=== PATIENT | female | born 1960 | race Caucasian/White ===

== ENCOUNTER 2016-09-27 16:50 | Emergency (ER) | payer OTHER ==
--- NOTE | 2016-09-27 18:46 | DIAGNOSTIC IMAGING REPORT ---
PROCEDURE: XR CHEST 1 VIEW INDICATION: SHORTNESS OF BREATH TECHNIQUE: Portable AP view 06:11 p.m. COMPARISON: None. FINDINGS: Endotracheal tube is in good position. Endotracheal tube is in the distended stomach. Lungs are clear. Heart and mediastinum are normal. Thorax is normal. IMPRESSION: 1. Endotracheal tube in good position. Lungs clear.
--- NOTE | 2016-09-27 19:28 | ED ORDER SUMMARY ---
..... Patient: SANDEEP RODRIGUEZ OrderSheet [facility] VisitID: [id number] [address] [place] [address] 56y, F Registration Date/Time: 09/27/2016 ORDER SHEET Weight: 73 kg (measured) Allergies: No Known Drug Allergy GENERAL ORDERS: CBC w Diff Urgent (17:03 09/27/2016 Joaquin Mijares) (17:37 Rena R.N.) CMP Urgent (17:03 09/27/2016 Joaquin Mijares) (17:37 Rena R.N.) UA-Culture if indicated Urgent (17:03 09/27/2016 Joaquin Mijares) (17:37 Rena R.N.) Urine Drug Screen Urgent (17:03 09/27/2016 Joaquin Mijares) (17:37 Rena R.N.) ABG (G) Urgent (17:03 09/27/2016 Joaquin Mijares) (17:37 Rena R.N.) Acetaminophen Level Urgent (17:03 09/27/2016 Joaquin Mijares) (17:37 Rena R.N.) Salicylate Level Urgent (17:03 09/27/2016 Joaquin Mijares) (17:37 Rena R.N.) Chest 1V (Post intubation) Urgent (18:03 09/27/2016 Joaquin Mijares) (Ack 18:04 LNations ER Tech1) (18:28 Rena R.N.) ABG (G) Urgent (18:37 09/27/2016 Joaquin Mijares) (Ack 18:43 LNations ER Tech1) (22:13 Ellie R.N.) MEDICATION ORDERS: Charcoal Activated PO 50 gm (NOW) (17:03 09/27/2016 Joaquin Mijares) (17:36 Rena R.N.) Rocuronium IVP 0.1 mg/kg (NOW) (19:06 09/27/2016 Rena R.N. verbal order read back to Joaquin Mijares) (19:09 Rena R.N.) IV FLUIDS: IV NS : initial bolus none -, then 1000 mL/hr for X1 (NOW) (17:00 09/27/2016 Joaquin Mijares) (17:31 Rena MartínezN.) Sodium Bicarbonate IV 100 meq (NOW) (17:09/27/2016 Joaquin Mijares) (17:34 Rena MartínezN.) Propofol Drip IV : initial bolus 50 mg, then 0.05 mg/kg/min (TITRATE); Urgent (18:27 09/27/2016 Rena Garcia verbal order read back to Joaquin Mijares) (18:59 Rena Nicholson.N.) Succinylcholine IV 100 mg (NOW) (19:07 09/27/2016 Rena Garcia verbal order read back to Joaquin Mijares) (19:11 Rena Shaw.) Etomidate IV 20 mg (NOW) (19:08 09/27/2016 Rena Garcia verbal order read back to Joaquin Mijares) (19:10 Rena MartínezN.) Sodium Bicarbonate IV 50 meq (NOW) (20:00 09/27/2016 Ellie Garcia verbal order read back to Joaquin Mijares) (20:02 Ellie Shaw.) ORDER SHEET NOTES: [Electronically signed by Musa Freedman Dr. (22:22 09/27/2016)] [Electronically signed by Saeed Zuñiga R.N. (22:24 09/27/2016)] [Electronically locked/signed by Saeed Zuñiga R.N. (22:24 09/27/2016)]
--- NOTE | 2016-09-27 19:28 | ED ORDER SUMMARY ---
..... Patient: SANDEEP RODRIGUEZ OrderSheet [facility] VisitID: [id number] [address] [place] [address] 56y, F Registration Date/Time: 09/27/2016 ORDER SHEET Weight: 73 kg (measured) Allergies: No Known Drug Allergy GENERAL ORDERS: CBC w Diff Urgent (17:03 09/27/2016 Joaquin Mijares) (17:37 Rena R.N.) CMP Urgent (17:03 09/27/2016 Joaquin Mijares) (17:37 Rena R.N.) UA-Culture if indicated Urgent (17:03 09/27/2016 Joaquin Mijares) (17:37 Rena R.N.) Urine Drug Screen Urgent (17:03 09/27/2016 Joaquin Mijares) (17:37 Rena R.N.) ABG (G) Urgent (17:03 09/27/2016 Joaquin Mijares) (17:37 Rena R.N.) Acetaminophen Level Urgent (17:03 09/27/2016 Joaquin Mijares) (17:37 Rena R.N.) Salicylate Level Urgent (17:03 09/27/2016 Joaquin Mijares) (17:37 Rena R.N.) Chest 1V (Post intubation) Urgent (18:03 09/27/2016 Joaquin Mijares) (Ack 18:04 LNations ER Tech1) (18:28 Rena R.N.) ABG (G) Urgent (18:37 09/27/2016 Joaquin Mijares) (Ack 18:43 LNations ER Tech1) (22:13 Ellie R.N.) MEDICATION ORDERS: Charcoal Activated PO 50 gm (NOW) (17:03 09/27/2016 Joaquin Mijares) (17:36 Rena R.N.) Rocuronium IVP 0.1 mg/kg (NOW) (19:06 09/27/2016 Rena R.N. verbal order read back to Joaquin Mijares) (19:09 Rena R.N.) IV FLUIDS: IV NS : initial bolus none -, then 1000 mL/hr for X1 (NOW) (17:00 09/27/2016 Joaquin Mijares) (17:31 Rena MartínezN.) Sodium Bicarbonate IV 100 meq (NOW) (17:09/27/2016 Joaquin Mijares) (17:34 Rena MartínezN.) Propofol Drip IV : initial bolus 50 mg, then 0.05 mg/kg/min (TITRATE); Urgent (18:27 09/27/2016 Rena Garcia verbal order read back to Joaquin Mijares) (18:59 Rena Nicholson.N.) Succinylcholine IV 100 mg (NOW) (19:07 09/27/2016 Rena Garcia verbal order read back to Joaquin Mijares) (19:11 Rena Shaw.) Etomidate IV 20 mg (NOW) (19:08 09/27/2016 Rena Garcia verbal order read back to Joaquin Mijares) (19:10 Rena MartínezN.) Sodium Bicarbonate IV 50 meq (NOW) (20:00 09/27/2016 Ellie Garcia verbal order read back to Joaquin Mijares) (20:02 Ellie Shaw.) ORDER SHEET NOTES: [Electronically signed by Musa Freedman Dr. (22:22 09/27/2016)] [Electronically signed by Saeed Zuñiga R.N. (22:24 09/27/2016)] [Electronically locked/signed by Saeed Zuñiga R.N. (22:24 09/27/2016)]
--- NOTE | 2016-09-27 19:28 | ED NURSING NOTES ---
Clinical Report - Nurses [facility] [address] [place] [address] 09/27/2016 16:50 Patient: SANDEEP RODRIGUEZ TRIAGE 17:00 09/27/16. BP: 95/68. HR: 127. RR: 18. O2 saturation: 91% on room air. Pain level now: 0/10. --18:46 Allen Cummins R.N. 17:00 09/27/16. Temp: 97.4 F (axillary). --19:21 Allen Cummins R.N. late entry -16:50. --19:32 Allen Cummins R.N. Triage time 1650. Acuity: LEVEL 2. 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 late entry -1700. SEPSIS SCREEN: Sepsis Screen. Negative (no infection suspected/documented). MARCELLUS COMA SCORE: [place] Coma Scale: 11- eyes open spontaneously (4); best verbal response- incoherent speech (2); best motor response- localizes to pain (5). --18:46 Allen Cummins R.N. Weight: 73 kg measured. Height/Length: 66 inches Estimated. BMI: 26. --16:59 Allen Cummins R.N. Medications OLANZapine Oral. --18:33 Allen Cummins R.N. HydrOXYzine HCl Oral. --18:33 Allen Cummins R.N. Ultram Oral. --18:33 Allen Cummins R.N. TiZANidine HCl Oral. --18:33 Allen Cummins R.N. CloNIDine HCl Oral. --18:34 Allen Cummins R.N. Atorvastatin Calcium Oral. --18:34 Allen Cummins R.N. AmLODIPine Besylate Oral. --18:34 Allen Cummins R.N. HCTZ. --18:35 Allen Cummins R.N. Naproxen Oral. --18:35 Allen Cummins R.N. Gabapentin Oral. --18:35 Allen Cummins R.N. QUEtiapine Fumarate Oral. --18:36 Allen Cummins R.N. Nortriptyline HCl Oral. --18:36 Allen Cummins R.N. Citalopram Hydrobromide Oral. --18:37 Allen Cummins R.N. Allergies No Known Drug Allergy. --18:42 Allen Cummins R.N. History Arrived by EMS, and ([facility]). ( Fire and Police on scene). The patient has had suicidal thoughts. SELF HARM ASSESSMENT: A self harm assessment was performed. (Unable to assess. Pt is here for a suicide attempt.). --18:46 Allen Cummins R.N. ( Pt took Nortryptyline 125mg x 30 pills (3750mg)). --19:32 Allen Cummins R.N. PROBLEMS: Breast Cancer. Cervical spine fracture. Endometriosis. --18:42 Allen Cummins R.N. Chronic pain. Depression. --18:43 Allen Cummins R.N. ADDITIONAL SURGERIES: Hysterectomy. Laminectomy. Lumpectomy of breast. --18:42 Allen Cummins R.N. Interventions ID band on patient. To treatment room. --18:46 Allen Cummins R.N. PHYSICAL ASSESSMENT late entry -17:00. To room via stretcher. GENERAL / NEURO / PSYCH: Gag reflex present. The patient is disoriented to place, time and situation. Altered mental status: confused and stuporous. Patient has incoherent responses. RESPIRATORY: Respirations not labored. Rhonchi bilaterally. CVS: Cardiac rhythm: sinus tachycardia. Capillary refill less than 2 seconds. GI / : Abdomen soft. Bowel sounds within normal limits. SKIN: Skin is pale. Skin is warm and dry. --19:16 Allen Cummins R.N. NURSING PROGRESS NOTES 16:50 09/27/2016 Site #1 started prior to arrival by EMS via IV in the left antecubital space with an 20g angiocath; one attempt. Saline lock flushed with 10 mL saline. --17:31 Allen Cummins R.N. 16:50 09/27/2016 Started bag #1 1000 mL IV Fluids IV NS (Saline); bolus of 1000 mL over 30 minute(s) via site #1. Allergies verified and confirmed 5 rights. IV patency established. IV site checked: no pain, redness, or swelling. IV flushed thoroughly pre- and post-medication administration. --17:31 Allen Cummins R.N. 17:10 09/27/2016 Site #2 started via IV in the right wrist with an 18g angiocath, with aseptic technique and good blood return; one attempt. Saline lock flushed with 10 mL saline. --17:31 Allen Cummins R.N. 17:10 09/27/2016 Started bag #1 1000 mL IV Fluids IV NS (Saline); bolus of 400 mL over 15 minute(s) via site #2. Allergies verified and confirmed 5 rights. IV patency established. IV site checked: no pain, redness, or swelling. IV flushed thoroughly pre- and post-medication administration. --17:33 Allen Cummins R.N. 17:12 09/27/2016 Sodium Bicarbonate IVP 100 meq given over 10 minute(s) via site #2. Allergies verified and confirmed 5 rights. IV patency established. IV site checked: no pain, redness, or swelling. IV flushed thoroughly pre- and post-medication administration. IVP given by RN. --17:34 Allen Cummins R.N. 17:09/27/2016 CHARCOAL ACTIVATED (Activated Charcoal) PO Oral Suspension 50 gm given. Allergies verified and confirmed 5 rights. --17:37 Allen Cummins R.N. 17:09/27/2016 IV Fluids IV NS Discontinued: bag #1 completed. Total amount infused: 1000 mL. IV patency established. IV site checked: no pain, redness, or swelling. IV flushed thoroughly. --17:32 Allen Cummins R.N. 17:25 09/27/2016 IV Fluids IV NS via IV site #2 Rate Changed: bag #2 decreased to 75 mL/hr. IV patency established. IV site checked: no pain, redness, or swelling. IV flushed thoroughly. --17:33 Allen Cummins R.N. 17:30 09/27/2016 Sodium Bicarbonate IVP Response: no adverse reaction symptoms have improved. --19:12 Allen Cummins R.N. 17:57 09/27/2016 Started bag #1 1000 mL IV Fluids IV NS (Saline); bolus of 100 mL over 5 minute(s) then at 50 mL/hr over 4 hour(s) via site #1. Allergies verified and confirmed 5 rights. IV patency established. IV site checked: no pain, redness, or swelling. IV flushed thoroughly pre- and post-medication administration (Liter #3). --18:30 Allen Cummins R.N. late entry -17:15. 16 fr NG tube inserted in right nostril with no difficulty. Placement confirmed by auscultation and return of gastric contents. Return: yellow fluid. Attached to low and intermittent suction. Patient tolerated procedure well. --19:02 Allen Cummins R.N. late entry -17:43. EKG time: (1743). EKG was performed by a tech and shown to the ED physician. --19:01 Allen Cummins R.N. late entry -18:20. INTUBATION: Intubation performed by ED physician. Assisted by two nurses, one tech and respiratory therapist. Preparation: pulse oximeter, logistics vice president and NIBP monitor applied, oxygen administration, BVM, suction and intubation tray at bedside, IV established and pre-oxygenated; see medication / fluid casino manager for meds used in this procedure. Procedure: 7.0 fr cuffed ETT via oral route. Proper airway placement confirmed by equal breath sounds, equal rise and fall of chest, epigastric auscultation, rising O2 sats, CO2 detector. Post-procedure: she was stable, no complications, tube secured (22 cm at lip) and connected to ventilator. CXR interpreted per physician revealed good tube position. Estimated blood loss: 0 mL. Total time of assist / procedure: 15 minutes. --19:05 Allen Cummins R.N. 17:57 09/27/2016 Rocuronium IVP 0.1 mg/kg given over 2 minute(s) via site #2. Allergies verified and confirmed 5 rights. IV patency established. IV site checked: no pain, redness, or swelling. IV flushed thoroughly pre- and post-medication administration. IVP given by RN. --19:09 Allen Cummins R.N. 17:58 09/27/2016 Etomidate IVP 20 mg given over 2 minute(s) via site #2. Allergies verified and confirmed 5 rights. IV patency established. IV site checked: no pain, redness, or swelling. IV flushed thoroughly pre- and post-medication administration. IVP given by RN. --19:10 Allen Cummins R.N. 18:00 09/27/2016 Succinylcholine IVP 100 mg given over 1 minute(s) via site #2. Allergies verified and confirmed 5 rights. IV patency established. IV site checked: no pain, redness, or swelling. IV flushed thoroughly pre- and post-medication administration. IVP given by RN. --19:11 Allen Cummins R.N. 18:00 09/27/2016 CHARCOAL ACTIVATED PO Response: no adverse reaction symptoms have improved. --19:12 Allen Cummins R.N. 18:10 09/27/2016 Rocuronium IVP Response: no adverse reaction. --19:13 Allen Cummins R.N. 18:10 09/27/2016 Etomidate IVP Response: no adverse reaction. --19:13 Allen Cummins R.N. 18:10 09/27/2016 Succinylcholine IVP Response: no adverse reaction. --19:13 Allen Cummins R.N. 18:50 09/27/2016 Started 0.05 mg of Propofol Drip IV in bag #1 100 mL; at 10 mcg/kg/min over 4 hour(s) via site #2 via IV pump. Allergies verified and confirmed 5 rights. IV patency established. IV site checked: no pain, redness, or swelling. IV flushed thoroughly pre- and post-medication administration. --18:59 Allen Cummins R.N. 19:14 09/27/2016 Propofol Drip IV Response: no adverse reaction. --19:14 Allen Cummins R.N. late entry -17:10. Oxygen administered. parachute line tier, pulse oximeter and NIBP monitor placed on patient; logistics vice president- Lead II and V5; monitor alarms on. Patient gowned. Head of bed elevated. Suicide precautions initiated. Continuous one on one supervision. Two patient identifiers checked. Side rails up x 2. Bed placed in lowest position. Brakes of bed on. Patient ready for evaluation- chart flagged. --19:15 Allen Cummins R.N. 17:15 09/27/16. BP: 127/75. HR: 117. RR: 17. O2 saturation: 95% on nasal cannula at 2 liters/minute. Pain level now: 0/10. --19:19 Allen Cummins R.N. <<STRICKEN ENTRY-- 17:30 09/27/16. BP: 127/75. HR: 117. RR: 17. O2 saturation: 95% on nasal cannula at 2 liters/minute. Pain level now: 0/10. --19:19 Allen Cummins R.N. --END STRIKE>> Correction. --19:20 Allen Cummins R.N. 17:30 09/27/16. BP: 134/79. HR: 118. RR: 18. O2 saturation: 96% on nasal cannula at 2 liters/minute. Pain level now: 0/10. --19:27 Allen Cummins R.N. 17:45 09/27/16. BP: 118/71. HR: 113. RR: 15. O2 saturation: 97% on nasal cannula at 2 liters/minute. --19:27 Allen Cummins R.N. 18:00 09/27/16. BP: 81/59. HR: 108. RR: 15. O2 saturation: 100% on ventilator. Pain level now: 0/10. --19:28 Allen Cummins R.N. 18:15 09/27/16. BP: 92/67. HR: 109. RR: 14. O2 saturation: 98% on ventilator. End tidal CO2: 27 mmHg. Pain level now: 0/10. --19:29 Allen Cummins R.N. 18:30 09/27/16. BP: 104/72. HR: 105. RR: 14. O2 saturation: 98% on ventilator. End tidal CO2: 27 mmHg. Pain level now: 0/10. --19:30 Allen Cummins R.N. late entry -19:20. Care transferred and report given (Saeed Martínez RN). --19:34 Allen Cummins R.N. 19:34 09/27/16. BP: 99/67. HR: 96 (regular). RR: 16. O2 saturation: 98% on ventilator. Pain level now: 0/10. Additional comments: Ventilator. --19:35 Saeed Zuñiga R.N. EKG time: (19:53). EKG was performed by a tech and shown to the ED physician. --19:54 Alphonse Rhodes 19:59 09/27/2016 IV Fluids IV NS Bag Change: bag #3. Total amount infused: 1000. STARTED bag #4 (1000 mL) at 150 mL/hr via IV pump. Confirmed 5 rights. IV patency established. IV site checked: no pain, redness, or swelling. IV flushed thoroughly. --20:09 Saeed Zuñiga R.N. 20:02 09/27/2016 Sodium Bicarbonate IVP 50 meq given over 5 minute(s) via site #1. Allergies verified and confirmed 5 rights. IV patency established. IV site checked: no pain, redness, or swelling. IV flushed thoroughly pre- and post-medication administration. IVP given by RN. --20:02 Saeed Zuñiga R.N. 20:15 09/27/16. BP: 125/79. HR: 98. RR: 16. O2 saturation: 99%. Pain level now: 0/10. --20:22 Saeed Zuñiga R.N. 20:30 09/27/16. BP: 126/78. HR: 98. RR: 27. O2 saturation: 99% on room air. Pain level now: 0/10. --22:12 Saeed Zuñiga R.N. 21:20 09/27/2016 Site #[address] upon transfer; patent, no pain and no signs of infection or infiltration. Good blood return present; flushes easily. --22:19 Saeed Zuñiga R.N. 21:20 09/27/2016 Site #[address] upon discharge; patent, no pain and no signs of infection or infiltration. Good blood return present; flushes easily. --22:24 Saeed Zuñiga R.N. 21:20 09/27/2016 IV Fluids IV NS Continued: upon discharge at the rate of 150 mL/hr. 600 mL remaining bag #4. IV patency established. IV site checked: no pain, redness, or swelling. IV flushed thoroughly. --22:15 Saeed Zuñiga R.N. 21:20 09/27/2016 IV Fluids IV NS Continued: at the rate of 21 mL/hr. 800 mL remaining bag #2. IV patency established. IV site checked: no pain, redness, or swelling. IV flushed thoroughly. --22:17 Saeed Zuñiga R.N. DISPOSITION / DISCHARGE 21:00 09/27/16. BP: 124/80. HR: 98. RR: 28. O2 saturation: 99% on room air. Temp: 98.1 F (oral). Pain level now: 0/10. --22:06 Saeed Zuñiga R.N. Departure time: 2100. --22:07 Saeed Zuñiga R.N. 21:30. Transferred. Transported via ambulance by nurse and transport team with monitor, IV and ventilator. Report was given to a nurse via a phone call. Report included patient's condition. Report was acknowledged and care was transferred. Patient's personal items; items were placed in belongings bag and transported with the patient. --22:08 Saeed Zuñiga R.N. Locked/Released at 09/27/2016 22:24 by Saeed Zuñiga R.N.
--- NOTE | 2016-09-27 19:28 | ED CLINICAL REPORT ---
Clinical Report - Physicians/Mid Levels [facility] [address] [place] [address] 09/27/2016 16:50 Patient: SANDEEP RODRIGUEZ Time Seen: 16:57; initial patient contact. Arrived- By ambulance. Historian- EMS personnel. History limited by altered mental status. Physical Exam limited by altered mental status. CPT: ER phys charges level 5 (#430124) (Should be a level 5, ROS was unobtainable to due mental status). HISTORY OF PRESENT ILLNESS Chief Complaint: DRUG OVERDOSE and SUICIDE ATTEMPT. This occurred just prior to arrival. Toxic symptoms present in ED with drowsiness. Single drug taken- Psychiatric medicine- Nortriptyline 3750 mg. The symptoms are described as severe. The patient has been depressed. Recent medical care: Not recently seen/assessed. REVIEW OF SYSTEMS Unobtainable due to patient's unresponsiveness. PAST HISTORY ( chronic pain depression HTN HLD Bipolar D/O). Surgeries: Back surgery. Breast biopsy. Neck surgery. Fusion. SOCIAL HISTORY Smoker - current status unknown. ADDITIONAL NOTES The nursing notes have been reviewed with agreement regarding the chief complaint, PMH and patient medications and allergies. PHYSICAL EXAM Appearance: The patient is lethargic. ENT: No depression of the gag reflex. No trouble handling secretions. Neck: Normal inspection. Neck supple. CVS: Tachycardia. Heart sounds normal. Rhythm normal. Respiratory: No respiratory distress. Breath sounds normal. Abdomen: Soft and nontender. No organomegaly. The bowel sounds are not abnormal. Skin: Skin warm and dry. Normal skin color. No rash. Extremities: No calf tenderness. No lower extremity edema. Neuro: [place] Coma Scale: 8- eyes open to voice (3); best verbal response- none (1); best motor response- withdrawal (4). LABS, X-RAYS, AND EKG EKG: EKG time: (1657). Wide-complex tachycardia (ventricular rate 140). Sinus tachycardia. Normal P waves. Normal MONA. RBBB. Normal ST and T waves. Prolonged QTc (528). The study has been interpreted contemporaneously by me. The study has been independently viewed by me. The EKG appears to be a good tracing. I agree with and confirm the computer reading of the EKG. Interpretation time: 1656. EKG #2: EKG time: (1742). Wide-complex tachycardia (ventricular rate 118). Sinus tachycardia. First-degree atrioventricular block. RBBB. Normal ST and T waves. Prolonged QTc (479). The study has been interpreted contemporaneously by me. The study has been independently viewed by me. The EKG appears to be a good tracing. Interpretation time: 1742. EKG #3: EKG time: (1952). Normal sinus rhythm. Rate: 98. Normal P waves. Normal MONA. RBBB. Normal ST and T waves. Prolonged QTc (566). The study has been interpreted contemporaneously by me. The study has been independently viewed by me. The EKG appears to be a good tracing. Interpretation time: 1952. Laboratory Tests: UA-Culture if indicated: (JEREMIAS: 09/27/2016 17:25) ( [facility] [place] Final results Test Result Flag Units (Reference) URINE COLOR YELLOW URINE APPEARANCE CLEAR URINE GLUCOSE NEGATIVE (NEGATIVE) URINE BILIRUBIN NEGATIVE (NEGATIVE) URINE KETONE NEGATIVE (NEGATIVE) URINE SPECIFIC GRAVITY 1.010 (1.010-1.030) URINE PH 7.5 (5.0-8.0) URINE PROTEIN NEGATIVE (NEGATIVE) URINE UROBILINOGEN 0.2 EU/dL (0.2-1.0) URINE NITRITE NEGATIVE (NEGATIVE) URINE BLOOD NEGATIVE (NEGATIVE) URINE LEUK ESTERASE NEGATIVE (NEGATIVE) URINE RBC 0-1 rbc/hpf (0-1) URINE WBC 1-3 wbc/hpf (0-1) URINE EPITHELIAL CELLS 1-3 EPI/hpf (0-5) URINE BACTERIA FEW (1+) (NONE SEEN) URINE COMMENT CULT NOT INDICATED AMORPHOUS CRYSTALS 1+URINE CULTURES ARE SET-UP BASED ON THE FOLLOWING CRITERIA:POSITIVE NITRITEPOSITIVE LEUKOCYTE ESTERASEGREATER THAN 10 WHITE BLOOD CELLSMODERATE (2+) OR GREATER BACTERIA CBC w Diff: (JEREMIAS: 09/27/2016 17:10) ( MsgRcvd 09/27/2016 17:23) Final results Test Result Flag Units (Reference) WHITE BLOOD COUNT 8.6 K/uL (4.5-11.5) RED BLOOD COUNT 4.84 M/uL (4.00-5.20) HEMOGLOBIN 11.6 L gm/dL (12.0-16.0) HEMATOCRIT 37.0 % (36.0-46.0) MEAN CELL VOLUME 76 L fL (80-100) MEAN CORPUSCULAR HGB 24 L pg (26-34) MEAN CORPUSCULAR HGB CONC 31 g/dL (31-37) RED CELL DISTRIBUTION WIDTH 18.8 H % (11.6-14.8) PLATELET COUNT 286 K/uL (150-400) NEUTROPHIL % 76.3 H % (50-75) LYMPH % 16.7 L % (25-40) MONO % 6.4 % (3-14) EOSINOPHIL % 0.3 % (0-4) BASOPHIL % 0.3 % (0-2) Urine Drug Screen: (JEREMIAS: 09/27/2016 17:25) ( MsgRcvd 09/27/2016 18:01) Final results Test Result Flag Units (Reference) AMPHETAMINE/METHAMPHETAMINE NEGATIVE (NEGATIVE) BARBITURATE NEGATIVE (NEGATIVE) BENZODIAZEPINE NEGATIVE (NEGATIVE) CANNABINOID POSITIVE H (NEGATIVE) COCAINE NEGATIVE (NEGATIVE) ECSTASY NEGATIVE (NEGATIVE) METHADONE NEGATIVE (NEGATIVE) OPIATE POSITIVE H (NEGATIVE) The urine drug screen is a qualitative screening test fordrug overdose and abuse. All screen results should beconsidered as presumptive.Drugs screened for are as follows:BenzodiazepinesCocaineAmphetamines/MetamphetaminesTHC (Tetrahydrocannabinol)OpiatesBarbituratesEcstasyMethadonePositive results are unconfirmed. For confirmation, notifythe lab for the specimen to be sent to the reference lab.All confirmations must be performed by a differentmethodology.The ingestion of natural herbal and plant productscontaining Ephedra/Ephedra metabolites can produce in urineone or more substances capable of cross reacting withamphetamine/methamphetamine immunoassays. These testsprovide a preliminary result only. A more specificalternative chemical method must be used to obtain aconfirmed analytical result. Salicylate Level: (JEREMIAS: 09/27/2016 17:10) ( MsgRcvd 09/27/2016 17:31) Final results Test Result Flag Units (Reference) SALICYLATE 3.9 mg/dL (2.8-20) CMP: (JEREMIAS: 09/27/2016 17:10) ( MsgRcvd 09/27/2016 18:02) Final results Test Result Flag Units (Reference) GLUCOSE 129 H mg/dL (70-110) BUN 9 mg/dL (7-18) CREATININE 0.6 mg/dL (0.6-1.3) Estimated GFR >60 mL/min Estimated GFR- >60 mL/min Note: Persistent reduction over 3 months in eGFR<60 mL/min/1.73 m2 defines CKD. Patients with eGFR values>=60 mL/min/1.73 m2 may also have CKD if evidence ofpersistent proteinuria. Additional information may be foundat www.kidney.org. SODIUM 137 mmol/L (136-145) POTASSIUM 3.0 L mmol/L (3.5-5.1) CHLORIDE 101 mmol/L (98-107) CARBON DIOXIDE 28 mmol/L (21-32) CALCIUM 8.7 mg/dL (8.5-10.1) TOTAL PROTEIN 7.7 g/dL (6.4-8.2) ALBUMIN 3.0 L g/dL (3.3-5.0) BILIRUBIN, TOTAL 0.3 mg/dL (0.0-1.0) ALKALINE PHOSPHATASE 61 U/L (46-116) AST (SGOT) 19 U/L (15-37) ALT (SGPT) 16 U/L (12-78) ACETAMINOPHEN 2.0 L ug/mL (10-30) ABG: (JEREMIAS: 09/27/2016 18:37) ( VtgRcvd 09/27/2016 18:56) Final results Test Result Flag Units (Reference) FIO2 35 % (20-101) ABG MODE OF DELIVERY AC MODIFIED NATHANAEL TEST POSITIVE? YES ABG VENT MODE AC ABG TIDAL VOLUME 450 cc ABG PATIENT RESP RATE 14 /MIN ABG RESP RATE SETTINGS 14 /MIN ARTERIAL BLOOD GAS PEEP 5 cmH2O ARTERIAL BLOOD GAS SITE LR ARTERIAL BLOOD GAS pH 7.47 H (7.35-7.45) ABG PCO2 41.4 mmHg (35-45) ABG PO2 86.3 mmHg (80.0-100.0) ABG BASE EXCESS 5.6 H mmol/L (-6.0--6.0) ABG HCO3 29.8 H mmol/L (20.0-26.0) ABG TCO2 31.1 H mmol/L (24.0-30.0) ABG NvTlF4x 118.5 H mmHg (7.0-14.0) *NOTE: Normal rangeis based on aFIO2 of 21% ABG SAT O2 97.6 % (95.1-100.0) ABG TOTAL HEMOGLOBIN 10.4 L g/dL (12.0-16.0) ABG O2 HEMOGLOBIN 96.0 % (95.0-100.0) ABG CARBOXYHEMOGLOBIN 1.7 H % (0.5-1.5) ABG METHEMOGLOBIN -0.1 L % (0.4-1.5) ABG RHEMOGLOBIN 2.4 % ABG: (JEREMIAS: 09/27/2016 17:03) ( MsgRcvd 09/27/2016 17:15) Final results Test Result Flag Units (Reference) FIO2 21 % (20-101) ABG MODE OF DELIVERY RA MODIFIED NATHANAEL TEST POSITIVE? YES ARTERIAL BLOOD GAS SITE LR ARTERIAL BLOOD GAS pH 7.42 (7.35-7.45) ABG PCO2 41.2 mmHg (35-45) ABG PO2 63.4 L mmHg (80.0-100.0) ABG BASE EXCESS 1.7 H mmol/L (-6.0--6.0) ABG HCO3 26.4 H mmol/L (20.0-26.0) ABG TCO2 27.7 mmol/L (24.0-30.0) ABG JgUsT4d 40.3 H mmHg (7.0-14.0) *NOTE: Normal rangeis based on aFIO2 of 21% ABG SAT O2 91.8 L % (95.1-100.0) ABG TOTAL HEMOGLOBIN 10.7 L g/dL (12.0-16.0) ABG O2 HEMOGLOBIN 90.2 L % (95.0-100.0) ABG CARBOXYHEMOGLOBIN 1.7 H % (0.5-1.5) ABG METHEMOGLOBIN 0.0 L % (0.4-1.5) ABG RHEMOGLOBIN 8.1 % . PROGRESS AND PROCEDURES Intubation: Time: 1800. Per protocol, time-out completed immediately before the procedure. ED physician at bedside. Intubated with 7.0 cuffed endotracheal tube. Head placed in sniffing position. C-spine immobilized. Removed dentures. Size 3 Rojelio blade used. Intubated via orotracheal route. Premedicated. Administered induction agent- etomidate and neuromuscular blocking agent- succinylcholine. No complications. Placement confirmed by direct visualization, equal breath sounds and rise and fall of chest wall, chest x-ray and ET tube CO2 detection device. Tube secured with device and connected to ventilator. Given propofol post-intubation. A chest x-ray was obtained: showing good tube position. Technique: direct visualization. Estimated blood loss: 0. Procedure successful; one attempt. Critical care performed (80 minutes). Time is exclusive of separately billable procedures. Time includes: direct patient care, patient reassessment, coordination of patient care, interpretation of data (laboratory data, pulse oximetry, arterial blood gases and chest xrays), review of patient's medical records, medical consultation, family consultation regarding treatment decisions and documentation of patient care. The patient required critical care due to the acute impairment of vital organ systems (cardiovascular, respiratory and central nervous system) and a high probability of life threatening deterioration. Numerous emergent interventions were required to prevent life threatening deterioration. Discussed case with on-call health care provider, (call returned 19:[address] [facility]. She accepts the transfer). Reviewed test results. Agreed upon treatment plan. Health care provider will see patient in hospital. Mother counseled via phone regarding the patient's stable but serious condition, test results and need for transfer. Parental concerns were addressed. 19:01. Disposition: Benefits, risks and alternatives to transfer explained to mother. Transferred to [facility]. Condition: stable. (Electronically signed by Musa Freedman Dr. 09/27/2016 22:22)
--- NOTE | 2016-09-27 22:25 | ED MAR SUMMARY ---
..... Medication Administration Record [facility] [address] [place] [address] Patient: SANDEEP RODRIGUEZ Visit ID: [id number] 56y, F Weight: 73.0 kg Height/Length: 66 in BMI: 26 ALLERGIES: No Known Drug Allergy Start 16:50 09/27/2016 Allen Cummins R.N., Stop 17:20 09/27/2016 Allen Cummins R.N. Medication Administered: IV NS (SALINE), Dose: IV Fluids, Bolus: 1000 mL over 30 minute(s), Dispensed: 1000 mL bag, Site: #1 left AC. Medication Ordered: IV NS : initial bolus none -, then 1000 mL/hr for X1 (NOW). Start 17:10 09/27/2016 Allen Cummins R.N., Continued Upon Disposition 21:20 09/27/2016 Saeed Zuñiga R.N. Medication Administered: IV NS (SALINE), Dose: IV Fluids, Bolus: 400 mL over 15 minute(s), Dispensed: 1000 mL bag, Site: #2 right wrist. Medication Ordered: IV NS : initial bolus none -, then 1000 mL/hr for X1 (NOW). Given 17:12 09/27/2016 Allen Cummins R.N. Medication Administered: SODIUM BICARBONATE [IVP], Dose: 100 meq IVP over 10 minute(s), Site: #2 right wrist. Medication Ordered: Sodium Bicarbonate IV 100 meq (NOW). Given 17:09/27/2016 Allen Cummins R.N. Medication Administered: CHARCOAL ACTIVATED [PO] (ACTIVATED CHARCOAL), Dose: 50 gm Oral Suspension PO. Medication Ordered: Charcoal Activated PO 50 gm (NOW). Start 17:57 09/27/2016 Allen Cummins R.N., Continued Upon Discharge 21:20 09/27/2016 Saeed Zuñiga R.N. Medication Administered: IV NS (SALINE), Dose: IV Fluids over 4 hour(s), Rate: 50 mL/hr, Bolus: 100 mL over 5 minute(s), Dispensed: 1000 mL bag, Site: #1 left AC. Medication Ordered: IV NS : initial bolus none -, then 1000 mL/hr for X1 (NOW). Given 17:57 09/27/2016 Allen Cummins R.N. Medication Administered: ROCURONIUM [IVP], Dose: 0.1 mg/kg IVP over 2 minute(s), Site: #2 right wrist. Medication Ordered: Rocuronium IVP 0.1 mg/kg (NOW). Given 17:58 09/27/2016 Allen Cummins R.N. Medication Administered: ETOMIDATE [IVP], Dose: 20 mg IVP over 2 minute(s), Site: #2 right wrist. Medication Ordered: Etomidate IV 20 mg (NOW). Given 18:00 09/27/2016 Allen Cummins R.N. Medication Administered: SUCCINYLCHOLINE [IVP], Dose: 100 mg IVP over 1 minute(s), Site: #2 right wrist. Medication Ordered: Succinylcholine IV 100 mg (NOW). Start 18:50 09/27/2016 Allen Cummins R.N. Medication Administered: PROPOFOL [IV DRIP], Dose: 0.05 mg Drip IV over 4 hour(s), Rate: 10 mcg/kg/min, Dispensed: 100 mL bag, Site: #2 right wrist. Medication Ordered: Propofol Drip IV : initial bolus 50 mg, then 0.05 mg/kg/min (TITRATE); Urgent. Given 20:02 09/27/2016 Saeed Zuñiga R.N. Medication Administered: SODIUM BICARBONATE [IVP], Dose: 50 meq IVP over 5 minute(s), Site: #1 left AC. Medication Ordered: Sodium Bicarbonate IV 50 meq (NOW).
--- NOTE | 2016-09-27 22:25 | ED MAR SUMMARY ---
..... Medication Administration Record [facility] [address] [place] [address] Patient: SANDEEP RODRIGUEZ Visit ID: [id number] 56y, F Weight: 73.0 kg Height/Length: 66 in BMI: 26 ALLERGIES: No Known Drug Allergy Start 16:50 09/27/2016 Allen Cummins R.N., Stop 17:20 09/27/2016 Allen Cummins R.N. Medication Administered: IV NS (SALINE), Dose: IV Fluids, Bolus: 1000 mL over 30 minute(s), Dispensed: 1000 mL bag, Site: #1 left AC. Medication Ordered: IV NS : initial bolus none -, then 1000 mL/hr for X1 (NOW). Start 17:10 09/27/2016 Allen Cummins R.N., Continued Upon Disposition 21:20 09/27/2016 Saeed Zuñiga R.N. Medication Administered: IV NS (SALINE), Dose: IV Fluids, Bolus: 400 mL over 15 minute(s), Dispensed: 1000 mL bag, Site: #2 right wrist. Medication Ordered: IV NS : initial bolus none -, then 1000 mL/hr for X1 (NOW). Given 17:12 09/27/2016 Allen Cummins R.N. Medication Administered: SODIUM BICARBONATE [IVP], Dose: 100 meq IVP over 10 minute(s), Site: #2 right wrist. Medication Ordered: Sodium Bicarbonate IV 100 meq (NOW). Given 17:09/27/2016 Allen Cummins R.N. Medication Administered: CHARCOAL ACTIVATED [PO] (ACTIVATED CHARCOAL), Dose: 50 gm Oral Suspension PO. Medication Ordered: Charcoal Activated PO 50 gm (NOW). Start 17:57 09/27/2016 Allen Cummins R.N., Continued Upon Discharge 21:20 09/27/2016 Saeed Zuñiga R.N. Medication Administered: IV NS (SALINE), Dose: IV Fluids over 4 hour(s), Rate: 50 mL/hr, Bolus: 100 mL over 5 minute(s), Dispensed: 1000 mL bag, Site: #1 left AC. Medication Ordered: IV NS : initial bolus none -, then 1000 mL/hr for X1 (NOW). Given 17:57 09/27/2016 Allen Cummins R.N. Medication Administered: ROCURONIUM [IVP], Dose: 0.1 mg/kg IVP over 2 minute(s), Site: #2 right wrist. Medication Ordered: Rocuronium IVP 0.1 mg/kg (NOW). Given 17:58 09/27/2016 Allen Cummins R.N. Medication Administered: ETOMIDATE [IVP], Dose: 20 mg IVP over 2 minute(s), Site: #2 right wrist. Medication Ordered: Etomidate IV 20 mg (NOW). Given 18:00 09/27/2016 Allen Cummins R.N. Medication Administered: SUCCINYLCHOLINE [IVP], Dose: 100 mg IVP over 1 minute(s), Site: #2 right wrist. Medication Ordered: Succinylcholine IV 100 mg (NOW). Start 18:50 09/27/2016 Allen Cummins R.N. Medication Administered: PROPOFOL [IV DRIP], Dose: 0.05 mg Drip IV over 4 hour(s), Rate: 10 mcg/kg/min, Dispensed: 100 mL bag, Site: #2 right wrist. Medication Ordered: Propofol Drip IV : initial bolus 50 mg, then 0.05 mg/kg/min (TITRATE); Urgent. Given 20:02 09/27/2016 Saeed Zuñiga R.N. Medication Administered: SODIUM BICARBONATE [IVP], Dose: 50 meq IVP over 5 minute(s), Site: #1 left AC. Medication Ordered: Sodium Bicarbonate IV 50 meq (NOW).
--- NOTE | 2016-09-27 22:25 | ED MED RECONCILIATION SUMMARY ---
Patient: SANDEEP RODRIGUEZ Medication Reconciliation Report [facility] VisitID: [id number] [address] [place] [address] 56y, F Registration Date/Time: 09/27/2016 Weight: 73 kg Height/Length: 66 in. BMI: 26.0 ALLERGIES: No Known Drug Allergy The patient's Home Medications are listed below: THE FOLLOWING MEDICATIONS NEED TO BE RECONCILED: AmLODIPine Besylate Oral Atorvastatin Calcium Oral Citalopram Hydrobromide Oral CloNIDine HCl Oral Gabapentin Oral HCTZ HydrOXYzine HCl Oral Naproxen Oral Nortriptyline HCl Oral OLANZapine Oral QUEtiapine Fumarate Oral TiZANidine HCl Oral Ultram Oral The source(s) of the original Home Medication information: Not obtained. The following Medications were given to the patient in the Emergency Department: IV NS IV Fluids bolus 1000 mL over 30 minute(s), administered: 09/27/2016 4:50:00 PM IV NS IV Fluids bolus 400 mL over 15 minute(s), administered: 09/27/2016 5:10:00 PM Sodium Bicarbonate [IVP] IVP 100 meq, administered: 09/27/2016 5:12:00 PM CHARCOAL ACTIVATED [PO] PO 50 gm, administered: 09/27/2016 5:20:00 PM IV NS IV Fluids bolus 100 mL over 5 minute(s), then 50 mL/hr, administered: 09/27/2016 5:57:00 PM Propofol [IV Drip] Drip IV bolus 0, then 0.05 mg 10 mcg/kg/min, administered: 09/27/2016 6:50:00 PM Rocuronium [IVP] IVP 0.1 mg/kg, administered: 09/27/2016 5:57:00 PM Etomidate [IVP] IVP 20 mg, administered: 09/27/2016 5:58:00 PM Succinylcholine [IVP] IVP 100 mg, administered: 09/27/2016 6:00:00 PM Sodium Bicarbonate [IVP] IVP 50 meq, administered: 09/27/2016 8:02:00 PM The following Medications were prescribed to the patient: None.
--- NOTE | 2016-09-27 22:25 | ED MED RECONCILIATION SUMMARY ---
Patient: SANDEEP RODRIGUEZ Medication Reconciliation Report [facility] VisitID: [id number] [address] [place] [address] 56y, F Registration Date/Time: 09/27/2016 Weight: 73 kg Height/Length: 66 in. BMI: 26.0 ALLERGIES: No Known Drug Allergy The patient's Home Medications are listed below: THE FOLLOWING MEDICATIONS NEED TO BE RECONCILED: AmLODIPine Besylate Oral Atorvastatin Calcium Oral Citalopram Hydrobromide Oral CloNIDine HCl Oral Gabapentin Oral HCTZ HydrOXYzine HCl Oral Naproxen Oral Nortriptyline HCl Oral OLANZapine Oral QUEtiapine Fumarate Oral TiZANidine HCl Oral Ultram Oral The source(s) of the original Home Medication information: Not obtained. The following Medications were given to the patient in the Emergency Department: IV NS IV Fluids bolus 1000 mL over 30 minute(s), administered: 09/27/2016 4:50:00 PM IV NS IV Fluids bolus 400 mL over 15 minute(s), administered: 09/27/2016 5:10:00 PM Sodium Bicarbonate [IVP] IVP 100 meq, administered: 09/27/2016 5:12:00 PM CHARCOAL ACTIVATED [PO] PO 50 gm, administered: 09/27/2016 5:20:00 PM IV NS IV Fluids bolus 100 mL over 5 minute(s), then 50 mL/hr, administered: 09/27/2016 5:57:00 PM Propofol [IV Drip] Drip IV bolus 0, then 0.05 mg 10 mcg/kg/min, administered: 09/27/2016 6:50:00 PM Rocuronium [IVP] IVP 0.1 mg/kg, administered: 09/27/2016 5:57:00 PM Etomidate [IVP] IVP 20 mg, administered: 09/27/2016 5:58:00 PM Succinylcholine [IVP] IVP 100 mg, administered: 09/27/2016 6:00:00 PM Sodium Bicarbonate [IVP] IVP 50 meq, administered: 09/27/2016 8:02:00 PM The following Medications were prescribed to the patient: None.
== END 2016-09-27 21:20 | disposition short-term general hospital (02) ==
LOC: ED SRH 16:50
DX: T43.012A Poisoning by tricyclic antidepressants, intentional self-harm, initial encounter (principal); R40.0 Somnolence; Y92.9 Unspecified place or not applicable; I10 Essential (primary) hypertension; F17.200 Nicotine dependence, unspecified, uncomplicated